=== PATIENT | male | born 2000 | race Caucasian/White ===

== ENCOUNTER → 2021-05-28 12:27 | Outpatient (CLI) | payer BC, SELFPAY ==
[2021-05-28 13:41] LABS: COVID19 -Nasal RAPID Negative (Negative)
== END ==
PROVIDERS: Visit Provider Physician Assistant
DX: Z20.822 Contact with and (suspected) exposure to COVID-19 (principal); R05 Cough
CPT/HCPCS: 87635

== ENCOUNTER 2022-12-29 00:43 | Emergency (ER) | payer BC, SELFPAY ==
[2022-12-29 01:00] VITALS: BP 130/76; PULSE 82; RESP 16; TEMP 36.7; O2SAT 99
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
--- NOTE | 2023-01-15 17:41 | CM.SWNOTE ---
ED [employer] f/u Note [employer] calls and leaves VM for patient after his recent d/c from the ED for [employer] f/u. [employer] receives return call today from patient. Patient endorses his interest in finding a therapist. Patient endorses hx of Anxiety and Depression. Patient endorses he recently started a new job and he is hopeful that his schedule will be more conducive to his mental health. Patient provides email address: [email or web address]. [employer] searches patient's insurance website and sends patient email with list of MH providers and crisis contacts. Plan: patient to seek out MH outpatient provider. Sabrina Jeronimo, DIE CAST SUPERVISOR
== END 2022-12-29 01:42 | disposition home or self-care (01) ==
PROVIDERS: Emergency Provider Emergency Medicine
DX: F41.9 Anxiety disorder, unspecified (principal)
CPT/HCPCS: 99281